=== PATIENT | female | born 1940 | race Caucasian/White ===

== ENCOUNTER → 2017-05-13 | Outpatient (CLI) | payer MEDICARE, BC ==
--- NOTE | 2017-05-13 11:26 | BD ---
EXAMINATION TYPE: MG DEXA axial skeleton. DATE OF EXAM: 05/13/2017 COMPARISON: 11/28/2012 CLINICAL HISTORY: Postmenopausal female Height: 65 IN Weight: 154 LBS FRAX RISK QUESTIONS: Alcohol (3 or more units per day): NO Family History (Parent hip fracture): NO Glucocorticoids (More than 3mos): YES PT TAKES 2 MG PER DAY. (Ex: prednisone, prednisolone, methylprednisolone, dexamethasone, and hydrocortisone). History of Fracture in Adulthood: YES LEFT ANKLE AGE 62 Secondary Osteoporosis: 1. Type 1 Diabetes: NO 2. Hyperthyroidism: NO 3. Menopause before 45: YES AGE 43 4. Malnutrition: NO 5. Chronic liver disease: NO Rheumatoid Arthritis: YES Current Tobacco Use: RISK FACTORS HISTORY OF: Family History of Osteoporosis: YES MOTHER Active: YES Diet low in dairy products/other sources of calcium: YES Postmenopausal woman: AGE 43 Take estrogen and/or progesterone medications: NOT NOW How long: AGE 53 - 62 MEDICATIONS: Prednisone or other steroids: YES PREDNISONE 2 MG PER DAY How Lon+ YEARS Thyroid Medications: YES Which medication: Levothyroxine How Lon + YEARS Additional Medications: METHOTREXATE, PREDNISONE, LEVOTHYROXINE, FOLIC ACID, LOSARTAN, METOPROLOL, AR EVACID, IRON EXAM MEASUREMENTS: Bone mineral densitometry was performed using the [employer] System. Bone mineral density as measured about the Lumbar spine is: ----- L1-L4(G/cm2): 1.207 T Score Values are as follows: ----- L2: -0.7 ----- L3: 0.7 ----- L4: 1.2 ----- L1-L4: 0.2 Bone mineral density has: Increased 4.1% since study of: 11/28/2012 Bone mineral density about the R hip (g/cm2): 0.983 Bone mineral density about the L hip (g/cm2): 1.023 T Score values are as follows: -----R Neck: -0.4 -----L Neck: -0.1 -----R Total: -0.8 -----L Total: -0.1 Bone mineral density has: Decreased -0.2% since study of: 11/28/2012 IMPRESSION: Normal (Values between +1 and -1 indicate normal bone mass). Consider repeating this study in 5 year s or sooner if there is some new clinical indication. NOTE: T-SCORE=SD OF THE YOUNG ADULT MEAN.
--- NOTE | 2017-05-16 08:45 | MM ---
Reason for exam: screening (asymptomatic). Last mammogram was performed 1 year ago. History: Patient is postmenopausal. Family history of breast cancer in mother at age 80. Took estrogen for 9 years. Physical Findings: A clinical breast exam by your physician is recommended on an annual basis and results should be correlated with mammographic findings. MG 3D Screening Mammo W/Cad Bilateral CC and MLO view(s) were taken. Prior study comparison: April 28, 2016, bilateral MG 3d screening mammo w/cad. February 14, 2015, bilateral MG screening mammo w CAD. There are scattered fibroglandular densities. No significant changes when compared with prior studies. ASSESSMENT: Benign, BI-RAD 2 RECOMMENDATION: Routine screening mammogram of both breasts in 1 year.
== END | disposition home or self-care (01) ==
LOC: RADBDWWP 09:54
PROVIDERS: ATTEND Internal Medicine
DX: Z12.31 Encounter for screening mammogram for malignant neoplasm of breast (principal); M81.0 Age-related osteoporosis without current pathological fracture
CPT/HCPCS: 77080; 77063; G0202

== ENCOUNTER → 2018-01-18 | Outpatient (CLI) | payer MEDICARE, BC ==
--- NOTE | 2018-01-18 11:53 | US ---
EXAMINATION TYPE: US abdomen complete DATE OF EXAM: 01/18/2018 COMPARISON: NONE CLINICAL HISTORY: R10.10 Upper abdominal pain. Upper abdominal pain EXAM MEASUREMENTS: Liver Length: 19.1 cm Gallbladder Wall: 0.4 cm CBD: 0.5 cm Spleen: 9.3 cm Right Kidney: 10.0 x 5.1 x 4.8 cm Left Kidney: 11.1 x 5.6 x 4.9 cm Technical limitations due to large amount of overlying bowel content Pancreas: Obscured by bowel gas Liver: enlarged, attenuating, heterogeneous, hypoechoic area near hernando hepatis = 2.3cm probable fo attila sparing Gallbladder: multiple stones Evidence for sonographic Guerra's sign: no CBD: wnl Spleen: wnl as visualized Right Kidney: no evidence of hydronephrosis Left Kidney: anechoic area mid Upper IVC: wnl Abd Aorta: visualized portions appear wnl IMPRESSION: 1. Cholelithiasis. No suspicious changes to suggest acute cholecystitis.
== END | disposition home or self-care (01) ==
LOC: RADUSWWP 08:08
PROVIDERS: ATTEND Internal Medicine Gastroenterology
DX: K80.20 Calculus of gallbladder without cholecystitis without obstruction (principal)
CPT/HCPCS: 76700

== ENCOUNTER → 2018-05-22 | Outpatient (CLI) | payer MEDICARE, BC ==
--- NOTE | 2018-05-23 14:36 | MM ---
Reason for exam: screening (asymptomatic). Last mammogram was performed 1 year ago. History: Patient is postmenopausal. Family history of breast cancer in mother at age 80. Took estrogen for 9 years. Physical Findings: A clinical breast exam by your physician is recommended on an annual basis and results should be correlated with mammographic findings. MG 3D Screening Mammo W/Cad Bilateral CC and MLO view(s) were taken. Prior study comparison: May 13, 2017, bilateral MG 3d screening mammo w/cad. April 28, 2016, bilateral MG 3d screening mammo w/cad. The breast tissue is heterogeneously dense. This may lower the sensitivity of mammography. Stable benign calcifications. There is no discrete abnormality. No significant changes when compared with prior studies. ASSESSMENT: Benign, BI-RAD 2 RECOMMENDATION: Routine screening mammogram of both breasts in 1 year.
== END | disposition home or self-care (01) ==
LOC: RADMAMWWP 10:37
PROVIDERS: ATTEND Internal Medicine
DX: Z12.31 Encounter for screening mammogram for malignant neoplasm of breast (principal)
CPT/HCPCS: 77063; 77067

== ENCOUNTER → 2019-06-01 | Outpatient (CLI) | payer MEDICARE, BC ==
--- NOTE | 2019-06-04 10:25 | MM ---
Reason for exam: screening (asymptomatic). Last mammogram was performed 1 year ago. History: Patient is postmenopausal. Family history of breast cancer in mother at age 80. Took estrogen for 9 years. Physical Findings: A clinical breast exam by your physician is recommended on an annual basis and results should be correlated with mammographic findings. MG 3D Screening Mammo W/Cad Bilateral CC and MLO view(s) were taken. Prior study comparison: May 22, 2018, bilateral MG 3d screening mammo w/cad. May 13, 2017, bilateral MG 3d screening mammo w/cad. The breast tissue is heterogeneously dense. This may lower the sensitivity of mammography. There is a spiculated 6 x 7mm mass, 5.5cm from nipple in the left upper outer quadrant. Benign appearing bilateral calcifications. No suspicious abnormality in the right breast. ASSESSMENT: Incomplete: need additional imaging evaluation, BI-RAD 0 RECOMMENDATION: Ultrasound of the left breast. [facility] will attempt to contact patient to return for ultrasound.
== END | disposition home or self-care (01) ==
LOC: RADMAMWWP 13:20
PROVIDERS: ATTEND Internal Medicine
DX: Z12.31 Encounter for screening mammogram for malignant neoplasm of breast (principal)
CPT/HCPCS: 77063; 77067

== ENCOUNTER → 2019-06-18 | Outpatient (CLI) | payer MEDICARE, BC ==
--- NOTE | 2019-06-18 14:08 | USB ---
Reason for exam: additional evaluation requested from abnormal screening. History: Patient is postmenopausal. Family history of breast cancer in mother at age 80. Took estrogen for 9 years. Physical Findings: Nurse did not find any significant physical abnormalities on exam. US Breast Workup LT Left complete breast ultrasound includes all four quadrants, the retroareolar region and axilla. Finding demonstrates a 8 x 7 x 9mm irregular, spiculated, solid, hypoechoic lesion at 2 o'clock, suspicious, biopsy recommended and a 3 x 2 x 2mm hypoechoic lesion at 7 o'clock, biopsy recommended. These results were verbally communicated with the patient and result sheet given to the patient on 06/18/19. ASSESSMENT: Suspicious, BI-RAD 4 RECOMMENDATION: Ultrasound core biopsy of the left breast. Called Dr. Bocanegra's office with mammographic findings and has scheduled an appointment for the patient for 08/02/19 at 11:[address] Gonzalez. Biopsy scheduled for 07/06/19 at 11:20. PRELIMINARY REPORT CALLED AND FAXED TO DR. GONZALEZ ON 06/18/19.
== END | disposition home or self-care (01) ==
LOC: RADUSWWP 12:48
PROVIDERS: ATTEND Internal Medicine
DX: R92.8 Other abnormal and inconclusive findings on diagnostic imaging of breast (principal)

== ENCOUNTER → 2019-07-06 | Day surgery (SDC) | payer BC, MEDICARE ==
[2019-07-06 10:25] VITALS: RESP 12
[2019-07-06 12:09] VITALS: BP 130/79; PULSE 63; TEMP 98.4
--- NOTE | 2019-07-06 13:21 | MM ---
EXAMINATION TYPE: MG diagnostic mammo LT wo CAD, US biopsy breast add'l VAD LT, US biopsy breast VAD LT DATE OF EXAM: 07/06/2019 CLINICAL HISTORY: R92.8 abn mamm. Abnormal ultrasound TECHNIQUE: Ultrasound guided core biopsy of left breast with clip placement 2 sites and follow-up diagnostic two-view mammogram. COMPARISON: Prior ultrasound June 18, 2019 and mammogram June 01, 2019 and older mammograms FINDINGS: The procedure of ultrasound guided core biopsy was explained to the patient. Benefits, alternatives, and risks were discussed. An informed consent was then obtained. The patient was placed in supine positioning for imaging and for the procedure. Preprocedure imaging redemonstrates more suspicious irregular hypoechoic 8 mm lesion 2:00 position zone BC in the left breast along with nonspecific 3 mm round hypoechoic to anechoic lesion 7:00 position zone left breast. The overlying skin was prepped and draped in usual sterile fashion. Lidocaine washout is used as anesthetic into the skin period lidocaine with epinephrine is used as anesthetic into the deeper tissue up to area of concern in the left breast. 2:00 lesion was first performed followed by 7:00 lesion. Under ultrasound guidance, a vacuum assisted biopsy gun device was used to obtain 3 core samples at both levels. Following this, a biopsy clip was left in both lesions. 7 o'clock lesion not well-seen after sampling. The patient tolerated the procedure well without any immediate complication. The patient was kept in the radiology department for short stay after the procedure and then discharged home in stable condition. Postprocedure mammogram shows successful employment of clip with 2:00 lesion and clip corresponding to area of original mammogram concern of new distortion. IMPRESSION: Successful, uncomplicated ultrasound guided core biopsy of 2 areas of concern in the left breast, full pathology results to follow. High index of suspicion of 2:00 lesion. Low index of suspicion 7:00 lesion. Pathology Results: Malignant A. LEFT BREAST, 2:00, ULTRASOUND GUIDED CORE BIOPSY: Invasive moderately differentiated ductal carcinoma (Grade 2). See Surgical Pathology Cancer Case Summary. B. LEFT BREAST, 7:00, ULTRASOUND GUIDED CORE BIOPSY: Fibrocystic changes including fibroadenomatoid hyperplasia with fibrosis and sclerosing adenosis. Negative for malignancy. Recommendation Surgical consult of the left breast. Definitive surgical/medical management. 2:00 concordant-malignant 7:00 concordant-benign MTDD
== END ==
LOC: RADUSWWP 10:01
PROVIDERS: ATTEND Surgery
DX: C50.412 Malignant neoplasm of upper-outer quadrant of left female breast (principal); Z17.0 Estrogen receptor positive status [ER+]; N60.12 Diffuse cystic mastopathy of left breast; N60.22 Fibroadenosis of left breast
CPT/HCPCS: 88305; 88342; 88341; 77065; 19083; 19084; A4648; J2001

== ENCOUNTER → 2019-08-21 | Outpatient (CLI) | payer MEDICARE ==
--- NOTE | 2019-08-21 15:56 | US ---
EXAMINATION TYPE: US kidneys/renal and bladder DATE OF EXAM: 08/21/2019 COMPARISON: NONE CLINICAL HISTORY: Stage 3 N18.3 kidney disease. EXAM MEASUREMENTS: Right Kidney: 10.0 x 3.9 x 4.3 cm Left Kidney: 11.4 x 5.7 x 4.5 cm Incidental finding of gallbladder wall echo shadow sign. Right Kidney: No hydronephrosis or masses seen Left Kidney: multiple cystic structures ovoid structure mid measuring 0.7 x 0.6 x 1.9cm, irregular shaped cystic structure measuring 1.3 x 1.4 x 1.3cm Bladder: wnl, not fully distended, patient felt full There is no evidence for hydronephrosis at this point in time. No nephrolithiasis is seen. No shady s are identified. The urinary bladder is anechoic. IMPRESSION: 1. No hydronephrosis or nephrolithiasis of either kidney. 2. Multiple left-sided renal cysts. 3. Incomplete distention of the urinary bladder with suboptimal evaluation. 4. Incidentally noted cholelithiasis.
== END | disposition home or self-care (01) ==
LOC: RADUSWWP 15:01
PROVIDERS: ATTEND Internal Medicine
DX: N28.1 Cyst of kidney, acquired (principal); N32.89 Other specified disorders of bladder; N18.3 Chronic kidney disease, stage 3 (moderate)
CPT/HCPCS: 76770

== ENCOUNTER → 2019-09-12 | Outpatient (CLI) | payer MEDICARE ==
--- NOTE | 2019-09-12 09:30 | NM ---
EXAMINATION TYPE: NM hepatobiliary w EF DATE OF EXAM: 09/12/2019 COMPARISON: NONE HISTORY: Calculus of gallbladder. Heartburn and reflux-like symptoms. TECHNIQUE: After the intravenous administration of 4.5 mCi Tc 99m Mebrofenin hepatobiliary scintigrap hy is performed. Immediate images post injection. FINDINGS: There is satisfactory initial accumulation of tracer by the liver. The gallbladder is visualized wit hin 30 minutes. The small bowel activity is noted within 50 minutes. At one hour 8 ounces of oral e nsure plus is given to mimic CCK and gallbladder ejection fraction is calculated at 72 %, in the norm al range. Therefore there is no scintigraphic evidence of cystic or common bile duct obstruction to suggest acute cholecystitis or gallbladder dyskinesia. IMPRESSION: Exam is within normal limits.
== END | disposition home or self-care (01) ==
LOC: RADNMMAIN 06:47
PROVIDERS: ATTEND Internal Medicine
DX: K80.20 Calculus of gallbladder without cholecystitis without obstruction (principal)
CPT/HCPCS: 78226; A9537

== ENCOUNTER → 2019-11-29 | Outpatient (CLI) | payer MEDICARE ==
[2019-11-29 09:36] LABS: Anisocytosis Slight; Basophils # (A) 0.1 k/uL (0-0.2); Basophils % (A) 1 %; Eosinophils # (A) 0.3 k/uL (0-0.7); Eosinophils % (A) 4 %; HCT 36.8 % (34.0-46.0); HGB 11.8 gm/dL (11.4-16.0); Lymphocytes # (A) 2.7 k/uL (1.0-4.8); Lymphocytes % (A) 34 %; MCH 28.7 pg (25.0-35.0); MCHC 32.1 g/dL (31.0-37.0); MCV 89.4 fL (80.0-100.0); Mean Platelet Volume 7.8; Monocytes # (A) 0.2 k/uL (0-1.0); Monocytes % (A) 2 %; Neutrophils # (A) 4.4 k/uL (1.3-7.7); Neutrophils % (A) 57 %; Platelet Count 271 k/uL (150-450); RBC 4.11 m/uL (3.80-5.40); WBC 7.8 k/uL (3.8-10.6)
[2019-11-29 18:47] LABS: African American GFR (CKD) 96.9 (60.0-200.0); Albumin 4.1 g/dL (3.80-4.90); Albumin/Globulin Ratio 1.86 (1.60-3.17); Anion Gap 8.7 mmol/L (4.00-12.00); BUN/Creat Ratio 18.57 Ratio (12.00-20.00); Calcium 9.5 mg/dL (8.7-10.3); Carbon Dioxide 25.3 mmol/L (21.6-31.8); Chol/HDL Ratio 4.38; Globulin 2.2 g/dL (1.6-3.3); LDL Cholesterol,Calculated 89.6 mg/dL (0.0-131.0); Non-African American GFR(CKD) 83.6 (60.0-200.0); Potassium 4.4 mmol/L (3.5-5.5); Total Bilirubin 0.8 mg/dL (0.3-1.2); Total Protein 6.3 g/dL (6.2-8.2); VLDL Calculation 45.4 mg/dL (5.00-40.00)
[2019-11-29 18:55] LABS: T4, Free (Free Thyroxine) 1.3 ng/dL (0.80-1.80)
== END | disposition home or self-care (01) ==
LOC: LABWHC1 08:19
PROVIDERS: ATTEND Internal Medicine
DX: I10 Essential (primary) hypertension (principal); E78.2 Mixed hyperlipidemia; E03.9 Hypothyroidism, unspecified
CPT/HCPCS: 36415; 80053; 80061; 84439; 84443; 85025

== ENCOUNTER → 2019-12-12 | Outpatient (CLI) | payer MEDICARE ==
--- NOTE | 2019-12-12 14:39 | BD ---
EXAMINATION TYPE: Axial Bone Density DATE OF EXAM: 12/12/2019 COMPARISON: NONE CLINICAL HISTORY: 79-year-old female [id number] Nuclear Medicine Study in the last 2 weeks: NO Barium Study in the last week: NO : NO Height: 5 FT 5 IN Weight: 148 FRAX RISK QUESTIONS: Alcohol (3 or more units per day): NO Family History (Parent hip fracture): NO Glucocorticoids (More than 3mos): YES (Ex: prednisone, prednisolone, methylprednisolone, dexamethasone, and hydrocortisone). History of Fracture in Adulthood: YES Secondary Osteoporosis: 1. Type 1 Diabetes: NO 2. Hyperthyroidism: NO 3. Menopause before 45: NO 4. Malnutrition: NO 5. Chronic liver disease: NO Rheumatoid Arthritis: YES Current Tobacco Use: NO RISK FACTORS HISTORY OF: Family History of Osteoporosis: YES Active: NO Postmenopausal woman: PART HYST AGE 43 Take estrogen and/or progesterone medications: How long: TOOK FROM [age] Lost more than 2 inches in height since high school: YES MEDICATIONS: Thyroid Medications: YES Which medication: LEVOTHYROXINE How Lon PLUS YEARS Additional Medications: METHOTREXATE, LEVOTHYROXINE, PREDNISONE, FOLIC ACID, LOSARTIN, METOPROLOL, IR ON, Additional History: EXAM MEASUREMENTS: Bone mineral densitometry was performed using the [employer] System. Bone mineral density as measured about the Lumbar spine is: ----- L1-L4(G/cm2): 1.216 T Score Values are as follows: ----- L2: -0.6 ----- L3: 1.0 ----- L4: 0.6 ----- L1-L4: 0.3 Bone mineral density has: DECREASED -1.1 % since study of: 2017 Bone mineral density about the R hip (g/cm2): 0.932 Bone mineral density about the L hip (g/cm2): 0.994 T Score values are as follows: -----R Neck: -0.8 -----L Neck: -0.3 -----R Total: -0.9 -----L Total: 0.0 Bone mineral density has: 0 CHANGE% since study of: 2017 IMPRESSION: Normal (Values between +1 and -1 indicate normal bone mass). Consider repeating this study in 5 year s or sooner if there is some new clinical indication. NOTE: T-SCORE=SD OF THE YOUNG ADULT MEAN.
== END | disposition home or self-care (01) ==
LOC: RADBDWWP 12:54
PROVIDERS: ATTEND Internal Medicine Hematology & Oncology
DX: C50.412 Malignant neoplasm of upper-outer quadrant of left female breast (principal); Z79.890 Hormone replacement therapy; Z88.0 Allergy status to penicillin; Z88.2 Allergy status to sulfonamides
CPT/HCPCS: 77080

== ENCOUNTER → 2020-10-09 | Outpatient (CLI) | payer MEDICARE ==
--- NOTE | 2020-10-09 12:55 | XR ---
EXAMINATION TYPE: XR thoracic spine complete DATE OF EXAM: 10/09/2020 CLINICAL HISTORY: Chronic back pain TECHNIQUE: Frontal, lateral, and swimmer's view of thoracic spine are obtained. COMPARISON: None. FINDINGS: Thoracic spine show levoconvex scoliosis centered in the mid to lower thoracic spine. Ther e is exaggerated thoracic kyphosis on the lateral images. Vertebral body heights are preserved. Mild multilevel disc space narrowing with mild multilevel spurring greatest in the mid to lower thoracic s pine. Visualized ribs are intact bilaterally. IMPRESSION: As above.
--- NOTE | 2020-10-09 12:56 | XR ---
EXAMINATION TYPE: XR lumbar spine 2 or 3V DATE OF EXAM: 10/09/2020 CLINICAL HISTORY: Chronic back pain TECHNIQUE: Frontal and lateral images of the lumbar spine are obtained. COMPARISON: None FINDINGS: There are 5 lumbar type vertebral bodies identified. There is dextroconvex scoliotic curva ture centered at L1-L2 level. Straightening of lumbar spine on lateral images. Vertebral body heights are maintained. Moderate disc space narrowing with mild anterior spurring L5-S1 level. Mild to moder ate disc space narrowing T12-L1 through the L2-L3 levels. Osseous structures are somewhat demineraliz ed . Overlying soft tissue is unremarkable. IMPRESSION: As above.
--- NOTE | 2020-10-09 12:58 | XR ---
EXAMINATION TYPE: XR Hip Bilateral and AP pelvis DATE OF EXAM: 10/09/2020 COMPARISON: NONE HISTORY: Pelvic and bilateral hip pain. TECHNIQUE: A single AP view of the pelvis is obtained. Two views of the bilateral hips are obtained. FINDINGS: There is no acute fracture/dislocation evident in the pelvis. The sacroiliac joints appea r symmetric and thought within normal limits. Pubic symphysis is intact. The overlying soft tissue a ppears unremarkable. Moderate axial joint space loss of both hips right greater than left. Two views of bilateral hip show no acute fracture or dislocation. No focal lytic or sclerotic lesion seen in the proximal femurs bilaterally. Femoral head shapes are maintained bilaterally. No signifi cant acetabular spurring. The overlying soft tissue is unremarkable bilaterally. IMPRESSION: As above.
== END | disposition home or self-care (01) ==
LOC: RADXRMAIN 11:22
PROVIDERS: ATTEND Internal Medicine
DX: M25.551 Pain in right hip (principal); M25.552 Pain in left hip; R10.2 Pelvic and perineal pain; M48.04 Spinal stenosis, thoracic region; M48.07 Spinal stenosis, lumbosacral region
CPT/HCPCS: 72072; 72100; 73521

== ENCOUNTER → 2020-11-26 | Outpatient (CLI) | payer MEDICARE ==
--- NOTE | 2020-11-26 13:42 | MR ---
EXAMINATION TYPE: MR lumbar spine wo/w con DATE OF EXAM: 11/26/2020 COMPARISON: Lumbar spine x-ray October 09, 2020 HISTORY: Spondylosis lumbar region, lower back pain TECHNIQUE: Multiplanar, multisequence images of the lumbar spine is performed without and with IV contrast, util izing 7 mL intravenous Gadavist FINDINGS: Dextroconvex scoliosis centered at L1-L2 level. Sagittal images of the lumbar spine show ve rtebral body height to appear satisfactory. Slight grade 1 retrolisthesis L1 on L2. Multilevel disc d esiccation. Moderate to advanced disc space narrowing with heterogeneous Modic type II endplate love es at L5-S1 level. Additional mild/moderate multilevel disc space narrowing greatest right L4-L5 leve l. The conus medullaris is normal in position and signal ending at L1-L2 disc space. Prominent heman gioma posterior superior L1 level. [id number] multilevel anterior spurring. No suspicious postc ontrast enhancement. Axial images at T12-L1 level appear within normal limits. Axial images at L1-L2 level show spondylolisthesis with mild facet arthropathy effacing posterolatera l thecal sac and naen-af-txrrzset broad disc bulge effacing the anterior thecal sac. Patent bilateral neural foramina. Axial images at L2-L3 level show [id number] facet degenerative changes and ligament flavum hype rtrophy effacing posterior lateral thecal sac. There is posterior spur disc complex effacing the ante rior thecal sac. Patent bilateral neural foramina. Axial images at L3-L4 level show mild/moderate facet arthropathy. No disc herniation. Axial images at L4-L5 level show moderate facet degenerative changes and ligament flavum hypertrophy effacing posterolateral thecal sac. There is bqgz-[id number]-[id number] broad disc bulge with right lateral dis c protrusion component. Patent bilateral neural foramina. Axial images at L5-S1 level show moderate to advanced facet arthropathy. There is central disc protru kandi minimally effacing anterior thecal sac. There is mild bilateral anterior inferior neural foramin al narrowing. Small central parapelvic cysts in both kidneys are present. Multiple intraluminal round gallstones in gallbladder. IMPRESSION: Scoliotic curvature. Multilevel degenerative changes in the lumbar spine as detailed jimmy barton
== END | disposition home or self-care (01) ==
LOC: RADMRIMAIN 11:48
PROVIDERS: ATTEND Internal Medicine
DX: M47.816 Spondylosis without myelopathy or radiculopathy, lumbar region (principal); M43.16 Spondylolisthesis, lumbar region; M51.26 Other intervertebral disc displacement, lumbar region; M99.73 Connective tissue and disc stenosis of intervertebral foramina of lumbar region; M43.8X6 Other specified deforming dorsopathies, lumbar region; M46.06 Spinal enthesopathy, lumbar region; N28.1 Cyst of kidney, acquired
CPT/HCPCS: 72158; A9585

== ENCOUNTER → 2021-01-26 | Outpatient (CLI) | payer MEDICARE ==
[2021-01-26 13:41] VITALS: BP 137/86; PULSE 64; RESP 18; TEMP 97.5
--- NOTE | 2021-01-26 13:53 | P.PAINCN ---
History of Present Illness - Reason for Consult Consult date: 01/26/21 - History of Present Illness This is 80 years old female with a chronic history of severe low back pain started more than 5 months ago, she denies any history of trauma or heavy lifting but she reported that this started after she was doing yard work, intensity of the pain increased over time and needs constant increases with any activity interfere with the quality of life, she was treated with muscle relaxant, and pain medication without any significant improvement of her pain, she is done with physical therapy and to practice without any benefit, she denies any motor or sensory deficit she denies any numbness or tingling sensation, reported that the pain mostly axial in nature Past Medical History Past Medical History: Cancer, Hyperlipidemia, Hypertension, Musculoskeletal Disorder, Osteoarthritis (OA), Rheumatoid Arthritis (RA), Thyroid Disorder Additional Past Medical History / Comment(s): Hiatal hernia, chronic anemia, gall stones, breast cancer 2019-had surg., DDD History of Any Multi-Drug Resistant Organisms: None Reported Past Surgical History: Adenoidectomy, Hysterectomy, Orthopedic Surgery, Tonsillectomy Additional Past Surgical History / Comment(s): Fx left ankle repair, laparotomy for ectopic , left breast lumpectomy Past Anesthesia/Blood Transfusion Reactions: Postoperative Nausea & Vomiting (PONV) Past Psychological History: No Psychological Hx Reported Smoking Status: Never smoker Past Alcohol Use History: Rare Past Drug Use History: None Reported - Past Family History Mother Family Medical History: Cancer Additional Family Medical History / Comment(s): breast with mastectomy Father Family Medical History: Cancer Additional Family Medical History / Comment(s): lung Brother(s) Family Medical History: Cancer Additional Family Medical History / Comment(s): larynx and esophageal Medications and Allergies Home Medications Medication Instructions Recorded Confirmed Type Ferrous Sulfate [Iron (65 MG 65 mg PO DAILY 02/19/15 01/22/21 History Elemental)] Folic Acid 1 mg PO DAILY 02/19/15 01/22/21 History Levothyroxine Sodium [Synthroid] 88 mcg PO DAILY 02/19/15 01/22/21 History Metoprolol Succinate [Toprol XL] 50 mg PO HS 02/19/15 01/22/21 History metHOTREXate sodium [Methotrexate] 20 mg PO KOCH 02/19/15 01/22/21 History predniSONE [Prednisone] 2 mg PO DAILY 02/19/15 01/22/21 History Cholecalciferol (Vitamin D3) 2,000 unit PO DAILY 06/21/19 01/22/21 History [Vitamin D3] Atorvastatin [Lipitor] 40 mg PO DAILY 01/22/21 01/22/21 History Cyanocobalamin (Vitamin B-12) 1,000 mcg PO DAILY 01/22/21 01/22/21 History [Vitamin B-12] DULoxetine HCL [Cymbalta] 20 mg PO DAILY 01/22/21 01/22/21 History Letrozole [Femara] 2.5 mg PO DAILY 01/22/21 01/22/21 History Losartan/Hydrochlorothiazide 1 tab PO DAILY 01/22/21 01/22/21 History [Losartan-Hctz 100-12.5 mg Tab] Sanford-3 Acid Ethyl Esters [Lovaza] 2 gm PO BID 01/22/21 01/22/21 History amLODIPine [Norvasc] 5 mg PO DAILY 01/22/21 01/22/21 History Allergies Allergy/AdvReac Type Severity Reaction Status Date / Time amoxicillin Allergy passed Verified 01/22/21 15:17 out, nausea/vomiting Sulfa (Sulfonamide Allergy Rash/Hives Verified 01/22/21 15:17 Antibiotics) Physical Exam Vitals: Vital Signs Temp Pulse Resp BP Pulse Ox 01/26/21 13:36 97.5 F L 64 18 137/86 98 Physical Examinations : -Constitutiona : Cooperative , not in acute distress . -HEENT : nech : supple , no Lymphadenopathy , normal thyroid size . : eyes : no ptosis , no icterus, no photophobia . - neurologic : Cranial nerve II to XII intact , no focal neurological deffecit . -psychatric : alert , oriented X 3 , appropriate affect , intact judgment and insight . -Lymphatic : no Lymphadenopathy . - musculoskeltal : Lumber spine moter stegnth lower extremities ,thigh and legs 5/5 Right side , 5/5 Left side deep tendon reflexes : normal Knee Jerk , normal ankle Jerk lumber facet Loading Test =positive Right , positive Left Range of motion of the lumbar spine Flexion 30 degrees, extension 10 degrees strait leg raising test = positive at 30 degree Fabere test= positive Right , and positive LT . tenderness over the Sacroiliac joint on the Right , and Left sides Results Comments: MRI of the lumbar spine multilevel lumbar facet arthropathy multilevel lumbar degenerative disc disease and mild foraminal stenosis at L5-S1 Assessment and Plan Assessment: Assessment and plan=1-lumbar spondylosis with lumbar facet arthropathy without myelopathy. 2-lumbar degenerative disc disease. Patient to be in good candidate to have diagnostic medial branch block lumbar area L3, L4, L5 Bilaterally, possible RFA Time with Patient: Greater than 30 PQRS Measure Charge Sheet Measure #130: Documentation of Current Meds in Medical Chart: Patient's medications documented in chart Measure #226: Tobacco Use: Screen & Cessation Intervention: Pt not a tobacco user Measure #111: Pneumonia Vaccination: Pneumococcal vaccine administered or previously received Measure #47: Advance Care Plan: Advance care planning discussed & documented, pt chose/unable to give Measure #412: Opioid Treatment Agreement: No documentation of signed opioid treatment agreement Measure #408: Opioid Therapy Follow-up Evaluation: Patient had NO f/u eval minimum every 3 months during opioid therapy Measure #317: Preventitive Care & Scrn High Bld Press & F/U: Normal blood pressure, f/u not required Measure #128: Body Mass Index (BMI) Screening & Follow-up: BMI documented within normal parameters Measure #131: Pain Assessment & Follow-up: Pain positive & plan documented, Follow-up scheduled Measure #431: Unhealthy Alcohol Use Preventative Care & Scrn: Patient not identified as an unhealthy alcohol user PQRS Narrative: Smoking Status Never smoker Blood Pressure 137/86 Pain Intensity [Lower Back] 5 Scale Used Numeric (1 - 10) Hx Alcohol Use (MH) No Home Medications: Ambulatory Orders Ferrous Sulfate [Iron (65 MG Elemental)] 65 mg PO DAILY 02/19/15 Folic Acid 1 mg PO DAILY 02/19/15 Levothyroxine Sodium [Synthroid] 88 mcg PO DAILY 02/19/15 Metoprolol Succinate [Toprol XL] 50 mg PO HS 02/19/15 metHOTREXate sodium [Methotrexate] 20 mg PO KOCH 02/19/15 predniSONE [Prednisone] 2 mg PO DAILY 02/19/15 Cholecalciferol (Vitamin D3) [Vitamin D3] 2,000 unit PO DAILY 06/21/19 Atorvastatin [Lipitor] 40 mg PO DAILY 01/22/21 Cyanocobalamin (Vitamin B-12) [Vitamin B-12] 1,000 mcg PO DAILY 01/22/21 DULoxetine HCL [Cymbalta] 20 mg PO DAILY 01/22/21 Letrozole [Femara] 2.5 mg PO DAILY 01/22/21 Losartan/Hydrochlorothiazide [Losartan-Hctz 100-12.5 mg Tab] 1 tab PO DAILY 01/22/21 Sanford-3 Acid Ethyl Esters [Lovaza] 2 gm PO BID 01/22/21 amLODIPine [Norvasc] 5 mg PO DAILY 01/22/21
== END | disposition home or self-care (01) ==
LOC: PNWHC3 12:48
PROVIDERS: ATTEND Specialist
DX: M47.16 Other spondylosis with myelopathy, lumbar region (principal); M46.96 Unspecified inflammatory spondylopathy, lumbar region; M51.37 Other intervertebral disc degeneration, lumbosacral region; M51.36 Other intervertebral disc degeneration, lumbar region
CPT/HCPCS: 99211

== ENCOUNTER 2021-03-13 09:41 | Day surgery (SDC) | payer MEDICARE ==
[2021-03-11 14:55] VITALS: BMI 24.0
[~2021-03-13 09:41] MED LIST: LACTATED RINGERS 1,000 ML IV SCH
[2021-03-13 09:59] VITALS: RESP 16; TEMP 97
[2021-03-13] MEDS ORDERED: LIDOCAINE 1% (10MG/ML) FOR IV START INTRADERMA ONE (09:59)
[2021-03-13 10:03] LABS: Glucose,Whole Blood 97 mg/dL (75-99)
[2021-03-13] MEDS ORDERED: fentaNYL (PF) 50 MCG/ML 2 ML AMP ONE (10:15)
[2021-03-13] MEDS ORDERED: ROPIVACAINE 5MG/ML 20ML VIAL ONE (10:15)
[2021-03-13] MEDS ORDERED: methylPREDNISolone ACETATE 40 MG/ML 1 ML VIAL ONE (10:15)
[2021-03-13] MEDS ORDERED: MIDAZOLAM 2 MG/2 ML VIAL ONE (10:15)
--- NOTE | 2021-03-13 10:31 | P.PCN ---
Date of Procedure: 03/13/21 Procedure(s) Performed: PREOPERATIVE DIAGNOSIS : 1- Lumbar spondylosis with Facet Arthropathy without myelopathy . 2- Lumber degenerative disc disease POSTOPERATIVE DIAGNOSIS: 1- Lumbar spondylosis with Facet Arthropathy without myelopathy . 2- Lumber degenerative disc disease PROCEDURE: Diagnostic bilateral L3 , L4 , and L5 medial branch block under fluoroscopy guidance(fluoroscopy images available in the radiology Department ) ( To target the facet joint between bilateral L4-5 , and L5-S1 )#1ST ANESTHESIA: monitered anesthesia care ,as per anesthesia department. EBL: Minimal COMPLICATION: None PROCEDURE INDICATION: Chronic low back pain secondary to Facet arthropathy unresponsive to conservative treatment. PROCEDURE DESCRIPTION: the patient was seen and identified in the preop holding area , risks and benefits and possible complications of the procedure and alternative were discussed with the patient, and the patient agreed to proceed with the procedure and signed the consent and vital signs monitored during the procedure and fluoroscopy was used to maximize the benefit and accuracy of the needle placement, and sedation was given to decrease patient anxiety, patient was taken to the procedure room and placed in prone position vital signs monitored in the back prepped with chlorhexidine X3 then under strict sterile technique using a right oblique fluoroscopy ,the junction of the transverse process and the superior articulating process of the right L3 , L4 , and L5 vertebra which corresponding to the fluoroscopy image of the eye of the Paul dog on the block side for the medial branches and subsequently , after local infiltration of skin and subcu tissuies with Ropivacaine 0.5 % , one mL at each level ,then 22-gauge Quincke-type needles , 3 needle was used , each one of them placed at the junction of the base of the transverse process and the superior articular process at the appropriate level, and the needle was advanced until the periosteum contacted, needle placement confirmed with AP oblique and lateral view and after appropriate needle placement confirmed, and after negative aspiration for heme and CSF and there was no paresthesia 1-1/2 mL of Ropivacaine 0.5% mixed with 20 mg Depo-Medrol , then half mL injected at each level after negative aspiration the needle subsequently removed and the same procedure repeated for the left side at left side at L3 , L4 and L5 levels. At the end of the procedure and the needles removed and a bandage applied after the skin was cleaned the cleaning solution patient taken to recovery room in stable condition and monitors in the recovery room for 20-30 minutes and discharged home in stable condition after discharge criteria met and patient will follow up with the pain clinic in 2-4 weeks
[2021-03-13] MEDS ORDERED: IV FLUID CONTINUATION 700 ML IV ONE (10:32)
[2021-03-13 10:36] VITALS: PULSE 72
--- NOTE | 2021-03-13 10:37 | FL ---
Fluoroscopy INDICATION: Pain FINDINGS: Fluoroscopy time: 5 seconds. Images obtained: 4. IMPRESSIONS: 1. Documentation of fluoroscopy.
[2021-03-13 10:54] VITALS: BP 119/58
== END 2021-03-13 11:14 | disposition home or self-care (01) ==
LOC: ORPAIN 09:41
PROVIDERS: ATTEND Specialist
DX: M47.816 Spondylosis without myelopathy or radiculopathy, lumbar region (principal); G89.29 Other chronic pain
CPT/HCPCS: 64493; 64494; J2250; J1030; J3010; J2795

== ENCOUNTER → 2021-06-15 | Outpatient (CLI) | payer MEDICARE ==
--- NOTE | 2021-06-15 11:27 | P.PN ---
Subjective Progress Note Date: 06/15/21 This is follow up visit for this 81 years old female with a chronic history of severe low back pain , diagnosed with lumbar spondylosis with lumbar facet arthropathy, lumbar degenerative disc disease, recently we have done diagnostic medial branch block lumbar area 1, here today for follow-up visit patient reported that she does not remember what happened to her after the block, he was sleepy and she has amnesia after the injection, as any motor or sensory deficit Physical Examinations : -Constitutiona : Cooperative , not in acute distress . -HEENT : nech : supple , no Lymphadenopathy , normal thyroid size . : eyes : no ptosis , no icterus, no photophobia . - neurologic : Cranial nerve II to XII intact , no focal neurological deffecit . -psychatric : alert , oriented X 3 , appropriate affect , intact judgment and insight . -Lymphatic : no Lymphadenopathy . - musculoskeltal : Lumber spine moter stegnth lower extremities ,thigh and legs 5/5 Right side , 5/5 Left side deep tendon reflexes : normal Knee Jerk , normal ankle Jerk lumber facet Loading Test =positive Right , positive Left Range of motion of the lumbar spine Flexion 30 degrees, extension 10 degrees strait leg raising test = positive at 30 degree Fabere test= positive Right , and positive LT . tenderness over the Sacroiliac joint on the Right , and Left sides Results Comments: MRI of the lumbar spine multilevel lumbar facet arthropathy multilevel lumbar degenerative disc disease and mild foraminal stenosis at L5-S1 Assessment and Plan Assessment: Assessment and plan=1-lumbar spondylosis with lumbar facet arthropathy without myelopathy. 2-lumbar degenerative disc disease. Patient to be in good candidate to have second diagnostic medial branch block lumbar area L3, L4, L5 Bilaterally. We'll do the procedure without any sedation , we will use 25 Guage spinal needle PQRS Measure Charge Sheet Measure #130: Documentation of Current Meds in Medical Chart: Patient's medications documented in chart Measure #226: Tobacco Use: Screen & Cessation Intervention: Pt not a tobacco user Measure #111: Pneumonia Vaccination: Pneumococcal vaccine administered or previously received Measure #47: Advance Care Plan: Advance care planning discussed & documented, pt chose/unable to give Measure #412: Opioid Treatment Agreement: No documentation of signed opioid treatment agreement Measure #408: Opioid Therapy Follow-up Evaluation: Patient had NO f/u eval minimum every 3 months during opioid therapy Measure #317: Preventitive Care & Scrn High Bld Press & F/U: Normal blood pressure, f/u not required Measure #128: Body Mass Index (BMI) Screening & Follow-up: BMI documented within normal parameters Measure #131: Pain Assessment & Follow-up: Pain positive & plan documented, Follow-up scheduled Measure #431: Unhealthy Alcohol Use Preventative Care & Scrn: Patient not i dentified as an unhealthy alcohol user PQRS Narrative:
[2021-06-15 12:00] VITALS: BP 127/73; PULSE 65; RESP 18; TEMP 98.2
== END ==
LOC: PNWHC3 10:52
PROVIDERS: ATTEND Specialist
DX: M47.816 Spondylosis without myelopathy or radiculopathy, lumbar region (principal); M51.36 Other intervertebral disc degeneration, lumbar region; Z88.1 Allergy status to other antibiotic agents; Z88.2 Allergy status to sulfonamides
CPT/HCPCS: 99211

== ENCOUNTER 2021-09-01 08:33 | Day surgery (SDC) | payer MEDICARE ==
[2021-08-28 12:40] VITALS: BMI 24.2
[~2021-09-01 08:33] MED LIST changes: +LIDOCAINE 1% (10MG/ML) FOR IV START INTRADERMA PRN
[2021-09-01 09:08] VITALS: RESP 16; TEMP 97.9
[2021-09-01] MEDS ORDERED: ONDANSETRON 4 MG/2 ML VIAL ONE (09:24)
[2021-09-01] MEDS ORDERED: LIDOCAINE 1% INJ 10MG/ML (20 ML MDV) ONE (09:24)
[2021-09-01] MEDS ORDERED: PROPOFOL 10 MG/ML 20 ML VIAL IV ONE (09:24)
--- NOTE | 2021-09-01 09:43 | P.PCN ---
Date of Procedure: 09/01/21 Procedure(s) Performed: BRIEF HISTORY: Patient is a 81-year-old pleasant female scheduled for an elective colonoscopy as a part of evaluation of of colon polyps. Last colonoscopy was 5 years ago. PROCEDURE PERFORMED: Colonoscopy. PREOPERATIVE DIAGNOSIS: History of colon polyps. IV sedation per Anesthesia. PROCEDURE: After informed consent was obtained, the patient, was brought into the endoscopy unit. IV sedation was administered by Anesthesia under continuous monitoring. Digital rectal examination was normal. Initially the Olympus CF-160 flexible video pediatric colonoscope was then inserted in the rectum, gradually advanced into the cecum without any difficulty. Careful examination was pe rformed as the scope was gradually being withdrawn. Ileocecal valve and the appendiceal orifice were visualized and appeared normal. Prep was excellent. Mucosa of the cecum, ascending colon, transverse colon, descending colon, sigmoid colon, and rectum appeared normal. Retroflexion was performed in the rectum and small internal hemorrhoids were seen. The patient tolerated the procedure well. IMPRESSION: Normal-appearing colon from rectum to cecum no evidence of colorectal neoplasia . RECOMMENDATIONS: Findings of this examination were discussed with the patient as well as a family.. She was advised to be a high-fiber diet and take fiber supplements a regular basis.
[2021-09-01 09:49] VITALS: PULSE 83
[2021-09-01 10:02] VITALS: BP 110/70
== END 2021-09-01 10:23 | disposition home or self-care (01) ==
LOC: ORWHC2ENDO 08:33
PROVIDERS: ATTEND Internal Medicine Gastroenterology
DX: Z12.11 Encounter for screening for malignant neoplasm of colon (principal); Z86.010 Personal history of colon polyps; K64.8 Other hemorrhoids; I10 Essential (primary) hypertension; E78.5 Hyperlipidemia, unspecified; M19.90 Unspecified osteoarthritis, unspecified site; M06.9 Rheumatoid arthritis, unspecified; E07.9 Disorder of thyroid, unspecified; K44.9 Diaphragmatic hernia without obstruction or gangrene; Z79.890 Hormone replacement therapy; Z79.899 Other long term (current) drug therapy; Z88.0 Allergy status to penicillin; Z88.2 Allergy status to sulfonamides
CPT/HCPCS: J2405; J2001; J2704; G0105; 45378

== ENCOUNTER → 2021-09-24 | Outpatient (CLI) | payer MEDICARE ==
[2021-09-24 08:31] VITALS: BP 145/71; PULSE 61; RESP 18; TEMP 98
--- NOTE | 2021-09-24 08:35 | P.PN ---
Subjective Progress Note Date: 09/24/21 Principal diagnosis: A 81 yr old female with a history of severe and chronic low back pain secondary to lumbar degenerative disc diseases and lumbar spondylosis with facet arthropathy presents today for evaluation status post LESI L5-S1 #1. Patient states she experienced 80% pain relief status post procedure. Pain level is currently at 4 out of 10 in intensity, achy, pressure sensation in the lower aspects of her lumbar spine with radiation of pain to the left side and left hip. Pain is provoked by standing for periods of 20 minutes or more, bending or lifting. Pain is alleviated with injections, alternating ice and heat, physical therapy in December 2020, chiropractic treatments and October 2020, daily home exercise regimen and rest. Interventional pain procedures completed include FB/MBB of BL L4-L5/ L5-S1 #1, LESI L5-S1 #1 Patient is currently on DENIES Patient denies any side effects of the medication(s), denies excessive drowsiness or sleepiness, denies suicidal ideation and reports that the current pain medication is helping to control the pain and improve activities of daily living. Patient denies any motor or sensory deficits. Patient denies any fever or night sweats, denies any change in the bowel movements or urination. Physical Examination: -Constitutional: Cooperative. Not in acute distress . -HEENT: Neck is supple. No lymphadenopathy. No thyromegaly. Normal thyroid size. Eyes: No ptosis , no icterus, no photophobia. ENT: No auditory deficits. Normal oropharynx. No Thrush. - Respiratory: Chest clear to auscultations bilaterally. No wheezing. No rhonchi. - Cardiovascular: Regular rate and rhythm. S1 / S2 , no S3 , no S4. - Gastrointestinal: Abdomen soft no tenderness. Bowel sounds positive in all four quadrants. No organomegaly. - Genitourinary: Deferred. - Neurologic: Cranial nerve II to XII intact. No focal neurological deficits. - Psychatric: Alert & oriented x 3. Matching mood & appropriate affect. Judgment and insight intact. - Lymphatic: No Lymphadenopathy. - Musculoskeletal: Cervical spine: Muscle bulk/ tone/ strength in the bilateral upper extremities normal. Facet loading test cervical area positive. Lumbar spine: Motor bulk/ tone/ strength lower extremities , thigh and legs : 5/5 Deep tendon reflexes : Normal Knee Jerk. Normal Ankle Jerk . Vertebral body tenderness to palpation over L5 Lumbar Facet Loading Test positive Straight Leg Raise: positive at 30 degrees right side/ left side Gaenslen's Test positive Sacral spine : Severe tenderness over the Sacroiliac joint: right side / left side Range of motion: Flexion of the lumbar spine <60 degrees Range of motion: Extension of the lumbar spine <20 degrees Gaenslen's Test positive Chuy test: positive right side / left side Assessment and plan: Chronic low back pain secondary to lumbar degenerative disc disease , lumbar spondylosis with facet arthropathy without myelopathy Recommendation of SUZETTEI L5-S1 #2. Risks, benefits of procedure discussed and pt verbalized understanding. Denies anticoagulant use. Denies medical history of diabetes. All questions answered. MAPS reviewed and it was appropriate. I have spent 31 minutes on patient care today. Dr Mohan was available by phone for the evaluation of this patient. The time was used to review the medical records including relevant urine studies and Prescription history (MAPs), review of the available imaging, evaluation and examination of the patient, coordination of care with the medical staff and if applicable referring physicians, as well as creation of the medical record Objective - Vital Signs Vital signs: Vital Signs Temp 98 F 09/24/21 08:25 Pulse 61 09/24/21 08:25 Resp 18 09/24/21 08:25 BP 145/71 09/24/21 08:25 Pulse Ox 97 09/24/21 08:25 PQRS Measure Charge Sheet Mode of Arrival: Ambulatory - Pain Location Lower Posterior Back Non-Pharmacological Interventions: Chiropractic Treatment, Heat, Home Exercise, Ice, Inactivity, Physical Therapy, Sitting, Stretching Pharmacological Interventions: Block, Epidural PQRS Narrative: Smoking Status Never smoker Blood Pressure 145/71 Pain Intensity [Lower 4 Posterior Back] Scale Used Numeric (1 - 10) Hx Alcohol Use (MH) No Home Medications: Ambulatory Orders Ferrous Sulfate [Iron (65 MG Elemental)] 65 mg PO DAILY 02/19/15 Folic Acid 1 mg PO DAILY 02/19/15 Levothyroxine Sodium [Synthroid] 88 mcg PO DAILY 02/19/15 Metoprolol Succinate [Toprol XL] 50 mg PO HS 02/19/15 metHOTREXate sodium [Methotrexate] 15 mg PO KOCH 02/19/15 predniSONE [Prednisone] 1 mg PO DAILY 02/19/15 Cholecalciferol (Vitamin D3) [Vitamin D3] 2,000 unit PO DAILY 06/21/19 DULoxetine HCL [Cymbalta] 20 mg PO DAILY 01/22/21 Letrozole [Femara] 2.5 mg PO DAILY 01/22/21 Losartan/Hydrochlorothiazide [Losartan-Hctz 100-12.5 mg Tab] 1 tab PO DAILY 01/22/21 amLODIPine [Norvasc] 5 mg PO DAILY 01/22/21
== END ==
LOC: PNWHC3 07:47
PROVIDERS: ATTEND Specialist
DX: M51.36 Other intervertebral disc degeneration, lumbar region (principal); M47.816 Spondylosis without myelopathy or radiculopathy, lumbar region; G89.29 Other chronic pain; Z88.1 Allergy status to other antibiotic agents; Z88.2 Allergy status to sulfonamides
CPT/HCPCS: 99211

== ENCOUNTER → 2022-03-04 | Outpatient (CLI) | payer MEDICARE ==
--- NOTE | 2022-03-04 19:22 | BD ---
EXAMINATION TYPE: Axial Bone Density DATE OF EXAM: 03/04/2022 CLINICAL HISTORY: 81 years year old Female. ICD-10 CODE: C50.412 BREAST CA Height: 65.5 Weight: 148 FRAX RISK QUESTIONS: Alcohol (3 or more units per day): NO Family History (Parent hip fracture): NO Glucocorticoids (More than 3mos): NO History of Fracture in Adulthood: YES, ANKLE Secondary Osteoporosis: 1. Type 1 Diabetes: NO 2. Hyperthyroidism: NO 3. Menopause before 45: YES 4. Malnutrition: NO 5. Chronic liver disease: NO Rheumatoid Arthritis: YES Current Tobacco Use: NO RISK FACTORS HISTORY OF: Hip Fracture (Right/Left): NO Spine Fracture: NO History of Wrist Fracture: NO Surgery to Spine/Hip(right/left)/Wrist (right/left): NO Family History of Osteoporosis: YES, MOTHER AND SISTER Active: NO Diet low in dairy products/other sources of calcium: YES Postmenopausal woman: YES Take estrogen and/or progesterone medications: NO Lost more than 2 inches in height since high school: NO Frequent falls: YES Poor Health: NO Hyperparathyroidism: NO Adrenal Insufficiency: NO MEDICATIONS: Prednisone or other steroids: NO Thyroid Medications: LEVOTHYROXIN How Long: PAST 30 YEARS Osteoporosis Medications: NO Additional Medications: LOSARTAN, LODIPINE, METOPROLOL, LEVOTHYROXINE, ATORVASTATIN, CYMBALTA, LETROZ OLE, METHOTREXATE, FOLIC ACID, VIT D Additional History: BREAST CANCER 2019 EXAM MEASUREMENTS: Bone mineral densitometry was performed using the Attensity System. Bone mineral density as measured about the Lumbar spine is: ----- L1-L4(G/cm2): 1.190 T Score Values are as follows: ----- L1: -0.1 ----- L2: -0.7 ----- L3: 0.0 ----- L4: 0.7 ----- L1-L4: 0.1 Bone mineral density has: DECREASED 3.4 % since study of: 05/13/2017 Bone mineral density about the R hip (g/cm2): 0.973 Bone mineral density about the L hip (g/cm2): 1.002 T Score values are as follows: -----R Neck: -0.5 -----L Neck: -0.3 -----R Total: -1.0 -----L Total: -0.3 Bone mineral density has: DECREASED 2.5 05/13/2017% since study of: FRAX%s: The graph provided illustrates a 18.9% chance for a major osteoporotic fx and a 2.9% chance f or the hips probability for fx in 10 years time. IMPRESSION: Normal (Values between +1 and -1 indicate normal bone mass). Note that measurements are bordering on osteopenia at the right hip. Consider repeating this study in 5 years or sooner if there is some new clinical indication. NOTE: T-SCORE=SD OF THE YOUNG ADULT MEAN.
== END | disposition home or self-care (01) ==
LOC: RADBDWWP 11:10
PROVIDERS: ATTEND Internal Medicine Hematology & Oncology
DX: C50.412 Malignant neoplasm of upper-outer quadrant of left female breast (principal); Z78.0 Asymptomatic menopausal state
CPT/HCPCS: 77080